=== PATIENT | female | born 1945 | race Hispanic/Latino ===

== ENCOUNTER 2016-09-12 12:24 | Emergency (ER) | payer MEDICARE, MEDICAID ==
[~2016-09-12] VITALS: Ht 152.4 cm; Wt 76.8 kg
[~2016-09-12 12:24] MED LIST: METF500T4 PO; METO10TA3 PO; TOPI50CA5 PO
[2016-09-12 12:44] VITALS: BP 156/93; PULSE 74; RESP 16; O2SAT 96
--- NOTE | 2016-09-12 13:59 | ED.REPORT ---
HPI-Headache Date of Service Sep 12, 2016 ED Provider: Rc Mcdonnell MD Pt is a 71 y/o female w/ a hx of prior renal CA s/p nephrectomy, chronic migraines, NIDDM, HTN, hypothyroid, presenting to the ED with family c/o intermittent diffuse headache onset 2 months ago, increasing for the past 5 days. She states she had a normal head CT scan in [place] within the past 5 days at which time she was treated for a migraine. She c/o associated mild bilateral lower extremity numbness starting this morning, dizziness, nausea, vomiting, subjective fever, urinary frequency, intermittent dysuria, mid- epigastric abdominal pain, unintentional 15 lb weight loss in 1 month. Pt denies recent trauma, focal weakness, speech changes, vision changes. Neurologist: Gladys CT head without contrast 09/10/16: Impression: No acute intracranial abnormality. Minor white matter chronic ischemic changes. Nursing Notes Stated Complaint: HEADACHE Chief Complaint: Headache Nursing Notes Reviewed: Yes Allergies: Coded Allergies: No Known Allergies (Verified Allergy, Unknown, 07/05/15) Scheduled Metformin (Metformin) 500 Mg Tablet 500 MG PO BID Topiramate ER (Topiramate ER) 50 Mg Capsule 50 MG PO BID Scheduled PRN Metoclopramide (Metoclopramide) 10 Mg Tablet 10 MG PO QID PRN PRN For Dyspepsia or Heartburn General Time Seen by MD: 13:58 Chief Complaint Headache Hx Obtained From: Patient, Other family... Arrived By: Walk-in Sudden in Onset?: No Onset Occurred: 5 days ago Symptom Duration: Since onset Location: : Generalized Quality: Aching Severity: Current: Moderate Severity: Maximum: Moderate Recent Healthcare: Recent testing, Previous diagnosis, Prior workup Similar Sx Previous: Yes Past Medical History Past Medical History Notes: Neurologist: Gladys Past Medical History Prior renal CA s/p nephrectomy Migraines Diabetes type II Hypertension Hypothyroid GERD Depression Obesity Possible left adrenal mass Past Surgical History R Radical nephrectomy - pathology positive for renal cell carcinoma, clear cell type 12/09/2049 (laparoscopic) Family History reviewed, not relevant Smoking History Never Smoker Social History Alcohol Use: Denies alcohol use Drug Use: Denies drug use Ambulatory Status Independent Review of Systems Constitutional: Reports: Fever, Recent wt loss GI: Reports: Abdominal pain, Nausea, Vomiting Neurologic: Reports: Dizziness, Headache, Numbness, Denies: Confusion, Focal weakness, Slurred speech, Unable to speak, Vision change Complete sys rev & neg: except as marked. Female: Reports: Dysuria, Urinary frequency Physical Exam Initial Vital Signs Vital Signs (First) Date Time Temp Pulse Resp B/P Pulse Ox O2 Delivery O2 Flow Rate FiO2 09/12/16 12:44 36.2 74 16 156/93 96 Room Air Initial VS: Reviewed, Vital signs normal ENT: Mucous membranes moist, Conjunctiva normal, No scleral icterus Respiratory: Breath sounds normal, Clear to auscultation, No respiratory distress Cardiovascular: Regular rate & rhythm, Heart sounds normal, Intact distal pulses Abdomen / GI: Soft, Non-tender, No guarding, No rebound, No distention Extremities: Vascular intact, Neuro intact, No swelling, No tenderness Skin: Warm, Dry, No cyanosis Psychiatric: Mood/affect normal, Behavior normal, Normal thought content General/Constitutional: Awake, Alert, No acute distress, Well appearing, Cooperative, Not toxic appearing Head / Eyes: Atraumatic, Normocephalic, PERRL Neck: Atraumatic, Supple, No meningismus, Full range of motion Neurologic: Oriented X3, Speech NL, No motor deficits, No sensory deficits, CN II - XII intact, Cerebellar NL, Memory NL Lower extremities neuro intact Interpretation & Diagnostics Lab Results Interpretation Test 09/12/16 14:00 Hold Purple Top Tube Received (Received) Hold Blue Top Tube Received (Received) Hold Red Top Tube Received (Received) Hold Atlantic Top Tube Received (Received) Re-Eval/Medical Decision Med Decision/Clinical Course I did talk to the sleep medicine lab who says that she would have a CPAP me machine prescribed but has not followed up or been available for follow-up. Sleep study was done in February and many times and been made to contact them [place]. I spoke to the family who said they have not figured out how to get the machine. I called and found out that she needs to contact [facility] at [phone] whose office will arrange for prescription of the CPAP machine. Dr. Ramirez told me that she felt that CPAP treatment was really the main thing that would help with the headache along with the Topamax but no expected improvement from Topamax for a few months. Summary of Info: CT head without contrast 09/10/16: Impression: No acute intracranial abnormality. Minor white matter chronic ischemic changes. Re-Evaluation/Progress #1: Time of Eval: 15:54 Re-Evaluation/Progress Note: Pt rechecked. Headache decreased somewhat. Will consult neurology. Re-Evaluation/Progress #2: Time of Eval: 16:55 )( Patient Status: Condition improved, Mild relief, Pain improved Evaluation: Mental status normal, Neurologic nonfocal Re-Evaluation/Progress Note: Pt rechecked. Informed pt of plan for treatment. Pt understands and agrees with plan for treatment. F/U instructions and RTER warnings given. All questions addressed. Consultation : Referral / Consult Name: Danielle Graham MD Consulted With: Neurology Call Returned at: 16:38 Processing Archivist: Agrees with eval, Agrees with plan Note: Recommends for the patient to remain on scheduled outpatient treatments. She believes that the headache is consistent with the sleep apnea that she suffers from an believes that her primary concern would be to get the sleep apnea machine which she has not yet obtained. Counseled Regarding: Diagnosis, Lab results, Need for follow-up, When/why to return to ED Discharge & Departure Impression: Primary Impression: Migraine headache Migraine type: unspecified Status migrainosus presence: without status migrainosus Intractability: not intractable Qualified Code: G43.909 - Migraine, unspecified, not intractable, without status migrainosus Additional Impression: Urinary frequency Disposition: Home Discharge Condition All VS Reviewed: Yes Condition: Stable Patient Instructions: Migraine Headache (ED) Additional Instructions: I do not suspect that your headache is related to a stroke. I was able to receive records confirming that the head CT scan taken on 09/10/16 was normal which is very reassuring. Your physical exam is also reassuring. I spoke with your neurologist Dr. Graham today. She agrees with the plan for you to continue your regular outpatient medications and treatments. She felt that the primary treatment was to use the CPAP machine as previously recommended. Please call [facility] at [phone] to set up and equip your CPAP machine. Return to the emergency department if you experience changes in your vision, changes in your speech, one-sided numbness or weakness of your arms or legs, chest pain, confusion, severe or increased headache, persistent vomiting, high fever, severe neck stiffness, or for other concerning symptoms. Follow-up with your primary care doctor early next week. Follow-up with Dr. Win for further information regarding the urinary abnormality. Referrals: Dalton Jonas (PCP) Danielle Graham MD Attestation Portions of this note were transcribed by Avelino Pantoja. I, Dr. Mcdonnell, personally performed the history, physical exam and medical decision-making; I reviewed and confirmed the accuracy of the information in the transcribed note. Signed by Tatum Lopes, 09/12/16 - 1500 copies to: Danielle Graham MD; Dalton Jonas Kirk H MD Sep 12, 2016 13:59 AVELINO PANTOJA Sep 12, 2016 14:06
[2016-09-12] MEDS ORDERED: 0.9% Sodium Chloride 1,000 ML IV ONE (14:08)
[2016-09-12] MEDS ORDERED: Haloperidol 5 mg/mL Inj IVPUSH ONE (14:10)
[2016-09-12] MEDS ORDERED: MetoCLOpramide 5 mg/mL 2 mL Inj IVPUSH ONE (14:10)
[2016-09-12] MEDS ORDERED: Dexamethasone 10 mg/mL Inj IVPUSH ONE (14:10)
[2016-09-12 18:01] VITALS: BP_SYST 132; BP_SYST 158; BP_DIAS 70; BP_DIAS 97; PULSE 53; PULSE 88; RESP 20; O2SAT 100; O2SAT 94
== END 2016-09-12 18:02 | disposition home or self-care (01) ==
LOC: SED 14:18
DX: G43.909 Migraine, unspecified, not intractable, without status migrainosus (principal); R35.0 Frequency of micturition; E11.9 Type 2 diabetes mellitus without complications; I10 Essential (primary) hypertension; E03.9 Hypothyroidism, unspecified; K21.9 Gastro-esophageal reflux disease without esophagitis; Z79.84 Long term (current) use of oral hypoglycemic drugs; Z85.528 Personal history of other malignant neoplasm of kidney
CPT/HCPCS: 96361; 96374; 96375; 99284; J1100; J1200; J1630; J1885; J2765; J7030